=== PATIENT | female | born 1980 | race Caucasian/White ===

== ENCOUNTER 2017-10-26 14:24 | Emergency (ER) | payer OTHER ==
[~2017-10-26] VITALS: Ht 177.8 cm; Wt 161.0 kg
[2017-10-26] MEDS ORDERED: SEROQUEL XR50 MG PO (14:35)
[2017-10-26] MEDS ORDERED: HORIZANT300 MG PO (14:37)
[2017-10-26] MEDS ORDERED: ACETAMINOPHEN325 M1 PO (14:37)
[2017-10-26] MEDS ORDERED: NORCO 5-325 TA1 EACH PO (15:03)
== END 2017-10-26 15:16 | disposition home or self-care (01) ==
LOC: ED 14:24
DX: S82.891D Other fracture of right lower leg, subsequent encounter for closed fracture with routine healing (principal); E11.9 Type 2 diabetes mellitus without complications; F17.200 Nicotine dependence, unspecified, uncomplicated; Z88.5 Allergy status to narcotic agent; Z79.899 Other long term (current) drug therapy; X58.XXXD Exposure to other specified factors, subsequent encounter
CPT/HCPCS: 99283